=== PATIENT | female | born 1930 | race Caucasian/White ===

== ENCOUNTER → 2017-03-08 | Outpatient (CLI) | payer BC ==
[~2017-03-08] MED LIST: ACT30 PO; ALL300 PO; AMLO-110 PO; ASPEC81 PO; CHOL100010 PO; CYAN10005 PO; EVS60 PO; FERR1POW PO; MULT-506 PO; SIMV20TA2 PO; SITA1TAB21 PO; [UNRECOGNIZED DRUG - CODE] PO
== END | disposition home or self-care (01) ==
LOC: C.MAMM 13:25
PROVIDERS: ATTEND Family Medicine
DX: M81.0 Age-related osteoporosis without current pathological fracture (principal); M85.851 Other specified disorders of bone density and structure, right thigh; M85.852 Other specified disorders of bone density and structure, left thigh